=== PATIENT | female | born 1995 | race Caucasian/White ===

== ENCOUNTER 2016-11-14 17:41 | Emergency (ER) | payer OTHER ==
[~2016-11-14] VITALS: Ht 165.1 cm; Wt 99.8 kg
[~2016-11-14 17:41] MED LIST: ALDACTONE; ALDACTONE PO; ALDACTONE100 MG PO; AMOXICILLIN875 MG PO; BACTRIM DS TABL1 TA1 PO; BC IMPLANT; CLEOCIN HCL300 M1 PO; DICLOFENAC PO; ETODOLAC200 MG; FLEXERIL10 M1 PO; ILOTYCIN1 GM OD; IMPLANON68 MG/IMPL; KEFLEX500 M1 PO; KEFLEX500 MG PO; MOTRIN400 MG PO; NAPROSYN250 M1 PO; PROZAC; PROZAC PO; PROZAC10 M1; SPIRONOLACTONE50 MG PO; SUDAFED PO; TYLENOL #3 PO; ULTRAM PO; VICODIN 5/1 TAB 5/50 PO; VOLTAREN75 MG PO; ZYRTEC10 M2 PO; [UNRECOGNIZED DRUG - OTHER]
== END 2016-11-14 18:56 | disposition home or self-care (01) ==
LOC: SED 17:41
DX: K59.00 Constipation, unspecified (principal); K62.5 Hemorrhage of anus and rectum
CPT/HCPCS: 84703; 99283